=== PATIENT | female | born 1975 | race Two or more races ===

== ENCOUNTER → 2024-04-17 | Outpatient (CLI) | payer MEDICAID, SELFPAY ==
--- NOTE | 2024-04-17 10:30 | XR_ITS ---
Examination: Breast ultrasound complete, bilateral Date and time of exam: April 17, 2024 1052 hours INDICATIONS: Bilateral breast sonography October 20, 2023 right axillary lymph node 19 mm with distorted architecture 12:00 nodule left breast 9 mm Axillary lymph node, left, irregular contour 2.9 cm Technique: Real-time grayscale ultrasonographic imaging bilateral breasts, including all 4 quadrants as well as nipple retroareolar and axillary regions. Findings: Sonographic images right breast No cystic or solid mass 2.7 x 1.0 x 2.1 cm axillary lymph node which does not appear abnormal Sonographic images left breast 12:00 cyst 10 x 9 mm Left axillary lymph node 2.5 x 1.1 x 2.1 cm which does not exhibit definite abnormality IMPRESSION: BI-RADS Category 2: Benign finding
== END | disposition home or self-care (01) ==
PROVIDERS: PCP Obstetrics & Gynecology; Referring Provider Obstetrics & Gynecology; Visit Provider Obstetrics & Gynecology
DX: N60.02 Solitary cyst of left breast (principal); R59.9 Enlarged lymph nodes, unspecified
CPT/HCPCS: 76641